=== PATIENT | male | born 1945 | race Asian ===

== ENCOUNTER 2022-03-12 16:50 | Inpatient (IN) | payer BC, OTHER ==
[~2022-03-12] VITALS: Ht 165.1 cm; Wt 74.8 kg
[2022-03-12 17:49] LABS: BASOPHILS # (AUTO) 0.1 K/uL (0.0-0.2); BASOPHILS % (AUTO) 0.6 % (0.0-2.0); EOSINOPHILS # (AUTO) 0.1 K/uL (0.0-0.4); EOSINOPHILS % (AUTO) 1.1 % (0.0-4.0); HEMATOCRIT 48.8 % (36-54); HEMOGLOBIN 16.8 g/dL (14.0-18.0); LYMPHOCYTES # (AUTO) 1.6 K/uL (1.0-5.5); LYMPHOCYTES % (AUTO) 17.4 % (20.5-51.5); MEAN CORPUSCULAR HEMOGLOBIN 32 pg (27-31); MEAN CORPUSCULAR HGB CONC 35 % (32-36); MEAN CORPUSCULAR VOLUME 92 fL (79.0-98.0); MONOCYTES # (AUTO) 0.7 K/uL (0.0-1.0); MONOCYTES % (AUTO) 7.3 % (1.7-9.3); NEUTROPHILS # (AUTO) 6.7 K/uL (1.8-7.7); NEUTROPHILS % (AUTO) 73.6 % (40.0-70.0); PLATELET COUNT (AUTO) 153 K/uL (130-430); RED CELL DISTRIBUTION WIDTH 13.2 % (9.0-15.0); WHITE BLOOD COUNT (AUTO) 9.1 K/uL (4.8-10.8)
[2022-03-12 18:20] LABS: ANION GAP 11 (5-15); CALCIUM 9.9 mg/dL (8.4-11.0); CHLORIDE 104 mmol/L (98-107); CREATININE 2.74 mg/dL (0.55-1.30); GLUCOSE 199 mg/dL (70-99); UREA NITROGEN, BLOOD 33 mg/dL (8-21)
--- NOTE | 2022-03-12 18:28 | NUR ---
COVID SWAB OBTAINED AND SENT TO LAB
[2022-03-12 18:32] LABS: ALANINE AMINOTRANSFERASE 27 U/L (12-78); ALBUMIN 3.8 g/dL (3.4-4.8); ASPARTATE AMINOTRANSFERASE 34 U/L (10-37); TOTAL BILIRUBIN 0.8 mg/dL (0.0-1.0)
--- NOTE | 2022-03-12 18:40 | NUR ---
troponin 3563 reported by lab, edp made aware.
--- NOTE | 2022-03-12 19:30 | NUR ---
MD DR BARFIELD AT BEDSIDE
--- NOTE | 2022-03-12 19:48 | NUR ---
PT BIB AWAKE AND ALERT AOX4. NO SOB OR DISTRESS. PT C/O CHEST PAINS STARTING TODAY WHILE DRIVING HOME. PT FELT DIZZY. PT STATES PAIN /. PT DENIES N/V AND KO. PT HAS HX OF BYPASS HEART SURGERY, HTN AND HDL, DM2.
[2022-03-12] MEDS ORDERED: ASPIRIN 81 MG TABLET(ECOTRIN) PO ONE (20:15)
[2022-03-12] MEDS ORDERED: HEPARIN 25,000 UNITS/D5W 250ML 250 ML IV ONE (20:15)
[2022-03-12] MEDS ORDERED: MUPIROCIN 2% TOPICAL OINTMENT 22 GM NS PRN (20:30)
[2022-03-12] MEDS ORDERED: ONDANSETRON HCL 4 MG/2 ML VIAL IVP PRN (20:30)
[2022-03-12] MEDS ORDERED: DOCUSATE SODIUM 100 MG CAPSULE PO PRN (20:30)
[2022-03-12] MEDS ORDERED: DEXTROSE 50% JECT 50 ML DISP.SYRIN IVP PRN (20:30)
[2022-03-12] MEDS ORDERED: MAGNESIUM SULFATE 50 ML IV PRN (20:30)
[2022-03-12] MEDS ORDERED: ZOLPIDEM TARTRATE 5 MG TABLET PO PRN (20:30)
[2022-03-12] MEDS ORDERED: POTASSIUM CHLORIDE 20 MEQ TAB.PRT.SR PO PRN (20:30)
[2022-03-12] MEDS ORDERED: LORazepam 2 MG/ML VIAL IVP PRN (20:30)
[2022-03-12] MEDS ORDERED: MORPHINE 2 MG/ML INJ. SYRINGE IVP PRN ×2 (20:30)
[2022-03-12] MEDS ORDERED: NACL 0.9% 1,000 ML IV SCH (20:30)
[2022-03-12] MEDS ORDERED: ACETAMINOPHEN 325 MG TABLET PO PRN (20:30)
[2022-03-12 20:43] LABS: PROTHROMBIN TIME 10.2 SECS (9.5-12.5)
[2022-03-12] MEDS ORDERED: *HEPARIN PER PHARMACY XX ONE (20:45)
[2022-03-12] MEDS ORDERED: HEPARIN SODIUM,PORCINE 5,000 UNITS/ML VIAL IV ONE (21:15)
[2022-03-12] MEDS ORDERED: HEPARIN SODIUM,PORCINE 3000 UNITS/0.6 ML BOLUS IVP PRN (21:15)
[2022-03-12] MEDS ORDERED: HEPARIN 25,000 UNITS in 250 ML PREMIX IV PRN (21:15)
[2022-03-12] MEDS ORDERED: HEPARIN SODIUM,PORCINE 2000 UNITS/0.4 ML BOLUS IVP PRN (21:15)
--- NOTE | 2022-03-12 23:53 | NUR ---
RECIEVED REPORT FROM KIRA SEGURA
[2022-03-13] VITALS (11 sets, daily range): BP systolic 129–157
--- NOTE | 2022-03-13 01:22 | NUR ---
Patient resting quietly. No acute distress noted. CHEST RISE AND FALL NOTED
--- NOTE | 2022-03-13 02:15 | NUR ---
DAUGHTER JUDY ANGELES CALLED. PATIENT OK TO GIVE INFORMATION. [phone]
--- NOTE | 2022-03-13 02:22 | NUR ---
MD WAN PAGED FOR MORNING CONSULT SPOKE TO [place]
--- NOTE | 2022-03-13 02:28 | NUR ---
MD VARGAS PAGEEna FOR MORNING CRITAL CARE CONSULT PAGED TAKEN BY SHYANNE
--- NOTE | 2022-03-13 03:36 | NUR ---
PATIENT MOVED TO HOSPITAL BED FOR COMFORT
--- NOTE | 2022-03-13 03:36 | NUR ---
# 20 gauge angiocath placed to LEFT HAND. Use of asceptic technique. Opsite placed over site. Blood return noted. Flushed with 10 cc of normal saline. No evidence of infiltration noted. Patient tolerated well.
--- NOTE | 2022-03-13 03:40 | NUR ---
PTT IS 85.7. HEPARIN DECREASED BY 100 UNITS PER HOUR. HEPARIN NOW RUNNING AT 9MLS/HR. TO REPEAT PTT IN 6 HOURS.
[2022-03-13] MEDS ORDERED: LIP20 PO (03:42)
[2022-03-13] MEDS ORDERED: HYDR100T25 PO (03:42)
[2022-03-13] MEDS ORDERED: DULA1.5P SQ (03:42)
[2022-03-13] MEDS ORDERED: EMPA10TA PO (03:42)
[2022-03-13] MEDS ORDERED: HYDR12.5 PO (03:42)
[2022-03-13] MEDS ORDERED: METO100T14 PO (03:42)
[2022-03-13] MEDS ORDERED: INSU100V26 SQ (03:42)
[2022-03-13] MEDS ORDERED: ASPI-524 PO (03:42)
[2022-03-13] MEDS ORDERED: INSU100V9 SQ (03:42)
[2022-03-13] MEDS ORDERED: LOSA50TA3 PO (03:42)
--- NOTE | 2022-03-13 03:42 | NUR ---
Medication reconciliation completed with information provided by DAUGHTER. Any prior medication reconciliation on file was reviewed and corrected.
--- NOTE | 2022-03-13 03:43 | NUR ---
PATIENT IS FULL CODE
[2022-03-13 04:02] LABS: BASOPHILS # (AUTO) 0.1 K/uL (0.0-0.2); BASOPHILS % (AUTO) 0.9 % (0.0-2.0); EOSINOPHILS # (AUTO) 0.2 K/uL (0.0-0.4); EOSINOPHILS % (AUTO) 2.5 % (0.0-4.0); HEMATOCRIT 46.3 % (36-54); HEMOGLOBIN 15.8 g/dL (14.0-18.0); LYMPHOCYTES # (AUTO) 2.1 K/uL (1.0-5.5); LYMPHOCYTES % (AUTO) 22.9 % (20.5-51.5); MEAN CORPUSCULAR HEMOGLOBIN 32 pg (27-31); MEAN CORPUSCULAR HGB CONC 34 % (32-36); MEAN CORPUSCULAR VOLUME 92 fL (79.0-98.0); MONOCYTES # (AUTO) 0.8 K/uL (0.0-1.0); MONOCYTES % (AUTO) 8.9 % (1.7-9.3); NEUTROPHILS # (AUTO) 5.9 K/uL (1.8-7.7); NEUTROPHILS % (AUTO) 64.8 % (40.0-70.0); PLATELET COUNT (AUTO) 140 K/uL (130-430); RED BLOOD CELL COUNT(AUTO) 5.01 MIL/uL (4.2-6.2); RED CELL DISTRIBUTION WIDTH 13.4 % (9.0-15.0); WHITE BLOOD COUNT (AUTO) 9.2 K/uL (4.8-10.8)
[2022-03-13 04:13] LABS: ANION GAP 9 (5-15); CHLORIDE 106 mmol/L (98-107); CREATININE 2.27 mg/dL (0.55-1.30); GLUCOSE 128 mg/dL (70-99); UREA NITROGEN, BLOOD 30 mg/dL (8-21)
--- NOTE | 2022-03-13 04:32 | NUR ---
PATIENT SLEEPING IN [facility]. NO ACUTE DISTRESS NOTED. CHEST RISE AND FALL NOTED
--- NOTE | 2022-03-13 05:29 | NUR ---
Patient resting quietly. No acute distress noted. Vital signs within normal range.
--- NOTE | 2022-03-13 05:32 | NUR ---
Admit bed requested Patient will be admitted to care of . Admitted to ICU unit. Diagnosis NSTEMI Inpatient (Yes or No) Y Observation (Yes or No) N Orientation concerns or request close to nursing station (Yes or No) N Covid Status NEG On vent or N Isolation requirements N Needs a sitter N From Home (Yes or if No enter name of facility) Y Requires Dialysis (Yes or No) N Med Rec Completed (Yes of No) Y
--- NOTE | 2022-03-13 07:04 | NUR ---
PATIENT OUT OF BED TO RESTROOM
--- NOTE | 2022-03-13 07:15 | NUR ---
REPORT GIVEN TO KIRA JAMES FOR CONTINUATION OF CARE
--- NOTE | 2022-03-13 07:20 | NUR ---
Assumtion of care received, pt A&Ox4, VSS, respirations even and unlabored, ambulatory to bathroom, pt denies pain, will cont to monitor.
--- NOTE | 2022-03-13 08:30 | NUR ---
ECHO at bedside
--- NOTE | 2022-03-13 08:30 | NUR ---
Dr Kraus Dumper Bailer Operator at bedside
[2022-03-13] MEDS ORDERED: NON-FORMULARY MEDICATION (Empagliflozin (Jardiance) 1 TAB) PO SCH (09:00)
[2022-03-13] MEDS ORDERED: INSULIN ASPART 100 UNITS/ML, 10 ML VIAL SQ SCH (09:00)
--- NOTE | 2022-03-13 09:45 | NUR ---
RECEIVED PT FROM KIRA JAMES AT THIS TIME WITH THE PT IN A STABLE CONDITION. HE IS A FULL CODE, AAOX4, ON ROOM AIR BREATHING E/U WITH SATURATION AT 100%. HE HAS NKA, MEDICAL HX INCLUDES HTN, DM, VASECTOMY, AND CABG (REPORTEDLY 5 TIMES), LAST CABG WAS IN 2014 PER THE PT. 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 HE CAME FOR SUDDEN ONSET CHEST PAIN AND SUBSEQUENTLY CAME TO THE ER AT 1400 ON 03/12. HIS TROPONIN IS ELEVATED WITH THE LATEST ONE AT [address] STALEY IS ON THE CASE. HE DENIES ANY CHEST PAIN OR PRESSURE AT THIS TIME, AND HE IS ON A HEPARIN DRIP AT 900 UNITS/HR (9ML/HR) WITH LATEST PTT OF 85.7 FROM THIS MORNING AT 0340, ANOTHER PTT WAS DRAWN AT 0940 PENDING RESULTS. HE DENIES ANY PAIN, AMBULATORY, HE HAS A LEFT AC AND LEFT HAND 20G PIV'S. NO EDEMA. ABD SOFT AND ROUND. BED IS IN THE LOWEST SETTING AND THE CALL LIGHT IS IN EASY REACH. HE IS ON TELE 45 SHOWING SINUS TACH WITH HR AT 101 BPM.
--- NOTE | 2022-03-13 09:50 | NUR ---
Patient will be admitted to care of Dr Lyn . Admitted to ICU unit. Will go to room 126A. Belongings list completed. Complete and up to date summary report printed. SBAR report to be given at bedside with opportunity for questions.
[2022-03-13] MEDS: ASPIRIN 81 MG TAB.CHEW PO SCH (10:26)
[2022-03-13] MEDS: METOPROLOL TARTRATE 50 MG TABLET PO SCH ×2 (10:27→22:18)
[2022-03-13] MEDS: LOSARTAN POTASSIUM 50 MG TABLET (COZAAR) PO SCH ×2 (10:27→22:17)
--- NOTE | 2022-03-13 10:40 | NUR ---
POTASSIUM THIS MORNING IS 3.3 SO I REPLACED IT WITH 40 mEq PO
[2022-03-13] MEDS: INSULIN LISPRO SLIDING SCALE 100 UNITS/ML, 3 ML VIAL (humaLOG) SUBCUT PRN ×2 (11:46→22:24)
[2022-03-13] MEDS ORDERED: INSULIN Lispro 100 UNITS/ML, 3 ML VIAL (humaLOG) SUBCUT ONE (13:45)
--- NOTE | 2022-03-13 15:00 | NUR ---
MOST RECENT PTT RESULTED WITH A LEVEL OF 50.5 (PER THE PROTOCOL NO DOSE CHANGE), AND THE PT CONTINUES TO STATE HE IS NO LONGER EXPERIENCING ANY CHEST PAIN/PRESSURE, DR STALEY MADE AWARE AND ORDERED TO KEEP THE HEPARIN DRIP WELL THE IVF (NS AT 50 ML/HR) DC'D AT THIS TIME. WILL CONTINUE TO MONITOR CLOSELY
--- NOTE | 2022-03-13 19:08 | NUR ---
REPORT GIVEN TO THE ONCOMING RN WHO ASSUMED TOTAL CARE OF THE PT AT THIS TIME WITH ALL QUESTIONS ANSWERED
--- NOTE | 2022-03-13 19:40 | NUR ---
Gave report to biotech production specialist Fred. 1954 Transferred patient to [facility]. No complains of chest pain and no signs of distress.
--- NOTE | 2022-03-13 20:22 | NUR ---
PT ARRIVED ON UNIT AT 2004 FROM OR AND VIA [facility]ADDIE WHILE ACCOMPANIED BY FAMILY. PT A+O*4, VSS. FAMILY REQUESTING PAIN MEDICATION. Addendum: 03/13/22 at 2035 by Katie Tuttle RN RN OMIT 2034 ENTRY. ENTRY SHOULD READ : PT ARRIVED ON UNIT AT 1954 IN W/C FROM ICU WHILE ACCOMPANIED BY FAMILY. PT A+O*4. VSS.
[2022-03-13] MEDS ORDERED: ATORVASTATIN 20 MG TABLET PO SCH (21:00)
[2022-03-13] MEDS ORDERED: INSULIN GLARGINE 100 UNITS/ML, 10 ML VIAL SQ SCH (21:00)
[2022-03-13] MEDS: INSULIN Lispro 100 UNITS/ML, 3 ML VIAL (humaLOG) SUBCUT SCH (22:23)
--- NOTE | 2022-03-14 05:13 | NUR ---
Consultation Paged Reason for Consultation: renal insuff Was consult called: Y Person who was notified: Monik Consulting Physician: Ismael Wayne (Harris Oviedo is operations and maintenance technican) Ordering Physician: Dr. Lyn
[2022-03-14 07:05] LABS: BASOPHILS # (AUTO) 0.1 K/uL (0.0-0.2); BASOPHILS % (AUTO) 0.6 % (0.0-2.0); EOSINOPHILS % (AUTO) 0.5 % (0.0-4.0); HEMOGLOBIN 16.1 g/dL (14.0-18.0); LYMPHOCYTES # (AUTO) 1.1 K/uL (1.0-5.5); LYMPHOCYTES % (AUTO) 12.1 % (20.5-51.5); MEAN CORPUSCULAR HEMOGLOBIN 32 pg (27-31); MEAN CORPUSCULAR HGB CONC 34 % (32-36); MEAN CORPUSCULAR VOLUME 93 fL (79.0-98.0); MONOCYTES # (AUTO) 0.5 K/uL (0.0-1.0); MONOCYTES % (AUTO) 5.1 % (1.7-9.3); NEUTROPHILS # (AUTO) 7.3 K/uL (1.8-7.7); NEUTROPHILS % (AUTO) 81.7 % (40.0-70.0); PLATELET COUNT (AUTO) 142 K/uL (130-430); RED BLOOD CELL COUNT(AUTO) 5.08 MIL/uL (4.2-6.2); RED CELL DISTRIBUTION WIDTH 13.2 % (9.0-15.0)
[2022-03-14 07:19] LABS: ANION GAP 8 (5-15); CALCIUM 8.8 mg/dL (8.4-11.0); CHLORIDE 108 mmol/L (98-107); GLUCOSE 88 mg/dL (70-99); UREA NITROGEN, BLOOD 29 mg/dL (8-21)
[2022-03-14] MEDS ORDERED: CLOP75TA32 PO (07:36)
[2022-03-14 07:37] LABS: ALANINE AMINOTRANSFERASE 23 U/L (12-78); ASPARTATE AMINOTRANSFERASE 28 U/L (10-37); THYROID STIMULATING HORMONE 0.27 uIu/mL (0.36-3.74); TOTAL BILIRUBIN 0.7 mg/dL (0.0-1.0)
[2022-03-14 08:00] VITALS: BP_SYST 152
--- NOTE | 2022-03-14 08:00 | NUR ---
SUMMARY OF CARE 0830 TROPONIN LEVEL RESULTS RELAYED TO DR STALEY, NO CHEST PAIN, NO SOB NOTED, AMBULATORY, TOOK BREAKFAST 1200 FOR DISCHARGE IF CLEARED BY DR STALEY, DR STALEY CLEARED THE PATIENT FOR DISCHARGE
[2022-03-14] MEDS ORDERED: CLOPIDOGREL BISULFATE 75 MG TABLET PO SCH (09:00)
[2022-03-14] MEDS: ASPIRIN 81 MG TAB.CHEW PO SCH (09:41)
[2022-03-14] MEDS: LOSARTAN POTASSIUM 50 MG TABLET (COZAAR) PO SCH (09:42)
[2022-03-14] MEDS: METOPROLOL TARTRATE 50 MG TABLET PO SCH (09:42)
[2022-03-14] MEDS: INSULIN Lispro 100 UNITS/ML, 3 ML VIAL (humaLOG) SUBCUT SCH (09:45)
[2022-03-14 12:00] VITALS: BP_SYST 103
[2022-03-14 12:09] VITALS: BP_SYST 113
--- NOTE | 2022-03-14 14:00 | NUR ---
D/C Patient Patient given medication reconciliation form and D/C instructions. Exit Care provided. Patient verbalized understanding. MD discussed with patient the results and treatment provided. Ambulatory with steady gait for discharge to home. Patient in stable condition, ID band removed. IV catheter removed, intact and dressing applied, no active bleeding. Rx of given. Patient educated on pain management. All belongings sent with patient.
== END 2022-03-14 14:00 | disposition home or self-care (01) | DRG 280 ==
LOC: SED 16:50 → STU 20:31 → SIC 23:51 → SMU 03-13 08:51 → SIC 03-13 09:50 → STU 03-13 19:45
PROVIDERS: ADMIT General Practice; ATTEND Specialist
DX: R07.89 Other chest pain (principal); N17.0 Acute kidney failure with tubular necrosis; I21.A1 Myocardial infarction type 2; N18.4 Chronic kidney disease, stage 4 (severe); I12.9 Hypertensive chronic kidney disease with stage 1 through stage 4 chronic kidney disease, or unspecified chronic kidney disease; E78.5 Hyperlipidemia, unspecified; I25.10 Atherosclerotic heart disease of native coronary artery without angina pectoris; Z20.822 Contact with and (suspected) exposure to COVID-19; E11.22 Type 2 diabetes mellitus with diabetic chronic kidney disease; Z87.891 Personal history of nicotine dependence; Z79.4 Long term (current) use of insulin; Z91.199 Patient's noncompliance with other medical treatment and regimen due to unspecified reason; Z95.1 Presence of aortocoronary bypass graft; Z79.899 Other long term (current) drug therapy; Z79.82 Long term (current) use of aspirin
CPT/HCPCS: 36415; 71045; 80048; 80053; 82962; 83036; 83735; 83880; 84443; 84484; 85025; 85610-TC; 85730-TC; 87081; 93005; 93306; 96365; 96376; 99285; G0378; J1644